=== PATIENT | female | born 1955 | race Caucasian/White ===

== ENCOUNTER → 2016-04-06 | Outpatient (REF) | payer OTHER | END | disposition home or self-care (01) | LOC: M LAB REF 16:17 | PROVIDERS: ATTEND Internal Medicine Medical Oncology | DX: C50.919 Malignant neoplasm of unspecified site of unspecified female breast (principal) ==

== ENCOUNTER → 2016-10-04 | Outpatient (REF) | payer OTHER | LOC: M LAB REF 16:36 | PROVIDERS: ATTEND Internal Medicine Medical Oncology | DX: C50.919 Malignant neoplasm of unspecified site of unspecified female breast (principal) ==

== ENCOUNTER → 2016-10-27 | Outpatient (CLI) | payer OTHER ==
--- NOTE | 2016-11-05 07:28 | SLEEPHOME ---
DATE OF PROCEDURE: 10/27/2016 ORDERED BY: Nanette Harp INTERPRETATION: Diagnostic home sleep testing was performed due to concern for the obstructive sleep apnea syndrome. Testing was performed using a NOX-T3 respiratory monitoring device. Continuous record was made of pulse, oxygen saturation, air flow, chest and abdominal strain and body position. 10 hours and 59 minutes of data were reviewed. There were 9 hours and 36 minutes of time marked as time in bed. During the interval marked time in bed, there were 218 respiratory events identified of 10 seconds in duration or greater for a respiratory event index of 22.7. The events were primarily obstructive. Baseline pulse rate 81. Patient's pulse rate ranged 41-98. Baseline saturation 91%. Lowest oxygen saturation 82%. Testing was performed in both the supine and non-supine position. IMPRESSION: Abnormal home sleep testing with repetitive respiratory events and oxygen desaturations to 82% with a respiratory event index of 22.7 is consistent with significant obstructive sleep apnea syndrome. RECOMMENDATION: The patient should be encouraged to undergo formal sleep evaluation and in laboratory pressure titration.
== END ==
LOC: M SLEEP HO 10:52
PROVIDERS: ATTEND Family Medicine
DX: G47.9 Sleep disorder, unspecified (principal); R06.83 Snoring

== ENCOUNTER → 2017-02-09 | Day surgery (SDC) | payer OTHER | LOC: M SDC 19:39 | PROVIDERS: ATTEND Internal Medicine Gastroenterology | DX: Z53.9 Procedure and treatment not carried out, unspecified reason (principal) ==

== ENCOUNTER → 2017-02-09 | Outpatient (CLI) | payer OTHER ==
--- NOTE | 2017-02-11 13:41 | SLEEPCENT ---
DATE OF PROCEDURE: 02/09/2017 ORDERED BY: Catie Rivas Nocturnal polysomnography was performed for the titration of pressure therapy in this patient with a clinical diagnosis of obstructive sleep apnea syndrome supported by home testing revealing a respiratory event index of 23. For testing, a ResMed AirFit F10 full face mask of small size was used, 4 cm of water pressure were applied to the circuit and the lights were extinguished. 8 hours and 10 minutes of data were reviewed. There were 266 minutes of sleep identified. Sleep latency was prolonged at 78 minutes. The patient was unable to achieve rapid eye movement (REM) sleep. Overall sleep architecture was poor with poor progression, a period of wake between 2:15 and 3:15, severe fragmentation. The overall sleep efficiency was 55.3%. Electrocardiogram showed a sinus rhythm with an average heart rate of 85 beats per minute. EEG showed coarsening in waveforms, alpha intrusion into non-REM stages. No focal EEG activity is appreciated and waveforms were otherwise normal for awake and sleep. Persistence of respiratory events prompted an increase in continuous positive airway pressure (CPAP) pressure despite optimal mask fit and minimal air leak. A trial was given of bilevel therapy. In retrospect, though the patient's sleep architecture was quite fragmented throughout the test, respiratory event suppression was seen in the supine posture with a CPAP pressure of 19. IMPRESSION: Obstructive sleep apnea syndrome (G47.33). RECOMMENDATION: Initiation of CPAP at a pressure of 19 cm should be sufficient to address the patient's respiratory disruption. However, given the poor progression of sleep on this testing, if clinical response is not forthcoming, re-titration would be prudent once the patient is accustomed to wearing the mask. Copy To: Dr. Mendiola
== END ==
LOC: M SLEEP 19:37
PROVIDERS: ATTEND Nurse Practitioner Adult Health
DX: G47.33 Obstructive sleep apnea (adult) (pediatric) (principal)

== ENCOUNTER 2017-03-24 08:50 | Day surgery (SDC) | payer OTHER ==
[2017-03-24] MEDS ORDERED: PROPOFOL 200 MG/20 ML VIAL As Ordered ×4 (08:57)
[2017-03-24] MEDS ORDERED: LIDOCAINE 2% INJ 100 MG/5 ML SDV (FOR ANES.) As Ordered ×2 (08:57)
[2017-03-24] MEDS ORDERED: PROPOFOL 500 MG/50 ML VIAL As Ordered ×2 (08:57)
[2017-03-24] MEDS ORDERED: NS 1,000 ML IV ×2 (09:15)
== END 2017-03-24 10:25 | disposition home or self-care (01) ==
LOC: M SDC 08:50
DX: Z12.11 Encounter for screening for malignant neoplasm of colon (principal); Z86.010 Personal history of colon polyps; K64.8 Other hemorrhoids; K57.30 Diverticulosis of large intestine without perforation or abscess without bleeding; Z80.0 Family history of malignant neoplasm of digestive organs; R12 Heartburn; K44.9 Diaphragmatic hernia without obstruction or gangrene; E78.00 Pure hypercholesterolemia, unspecified; E03.9 Hypothyroidism, unspecified; E06.3 Autoimmune thyroiditis; M32.9 Systemic lupus erythematosus, unspecified; F32.9 Major depressive disorder, single episode, unspecified; G47.30 Sleep apnea, unspecified; Z92.21 Personal history of antineoplastic chemotherapy; Z92.3 Personal history of irradiation; Z79.899 Other long term (current) drug therapy
CPT/HCPCS: 45378

== ENCOUNTER → 2017-04-11 | Outpatient (REF) | payer OTHER ==
[2017-04-11 14:55] LABS: CA15-3 ANTIGEN 10.2 U/ML (<32.4)
== END ==
LOC: M LAB REF 13:10
DX: C50.919 Malignant neoplasm of unspecified site of unspecified female breast (principal)
CPT/HCPCS: 86300

== ENCOUNTER → 2017-10-09 | Outpatient (REF) | payer OTHER ==
[2017-10-10 09:54] LABS: CA15-3 ANTIGEN 11.1 U/ML (<32.4)
== END ==
LOC: M LAB REF 13:14
DX: Z00.00 Encounter for general adult medical examination without abnormal findings (principal)

== ENCOUNTER → 2018-04-18 | Outpatient (CLI) | payer OTHER ==
[~2018-04-18] MED LIST: CELL500T PO; CEVI30CAP PO; DRIS50003 PO; GEMF600T5 PO; HYDR200T3 PO; LEVO125T4 PO; PANT40TA3 PO; PARO40TA3 PO; SIMV80TA13 PO; VAGI10TA VA; VENL37.52 PO
--- NOTE | 2018-04-18 15:27 | REP ---
WHOLE BODY BONE SCAN: Following the intravenous administration of 21.5 millicuries of Technetium M MDP, patient's whole body was imaged in the anterior and posterior projections. Additional oblique and lateral views were obtained. Comparison made with prior study if 10/04/2004. I see no compelling scintigraphic evidence of osseous metastases. There appears to be arthritic uptake once again in both shoulders, in portions of the entire spine and in the bilateral hands and feet. Renal and bladder activity are seen. The arthritic uptake in the spine has increased since the prior study. IMPRESSION: No compelling scintigraphic evidence of osseous metastases. Electronically Signed by Harris Harden MD 04/18/2018 05:24 P
== END ==
LOC: M RAD 09:50
PROVIDERS: ATTEND Internal Medicine Medical Oncology
DX: Z85.3 Personal history of malignant neoplasm of breast (principal); M54.5 Low back pain
CPT/HCPCS: 78306; A9503

== ENCOUNTER → 2018-07-10 | Outpatient (CLI) | payer OTHER ==
--- NOTE | 2018-07-11 03:08 | REP ---
Clinical: Cough. Technique: PA and lateral. Comparison: 11/24/2006. Findings: Elevation of the bilateral hemidiaphragms (left greater than right) along with perihilar and right lower lobe increased markings suggesting elements of atelectasis. No effusion. No pneumothorax. Visualized portions of the cardiac silhouette appear relatively normal. Skeletal structures appear intact. Evidence for prior left axillary node dissection. Impression: Relatively new elevation to the bilateral hemidiaphragms with suspected perihilar and right lower lobe atelectasis. Electronically Signed by Naveen Alonso MD 07/11/2018 02:58 A
== END ==
LOC: M SMT 09:07
PROVIDERS: ATTEND Family Medicine
DX: R91.8 Other nonspecific abnormal finding of lung field (principal)

== ENCOUNTER → 2018-10-10 | Outpatient (REF) | payer OTHER ==
[2018-10-13 14:07] LABS: HPV HYBRID CAPTURE II Negative (Negative)
== END ==
LOC: M SFHCWAGY 15:58
PROVIDERS: ATTEND Nurse Practitioner Family
DX: Z12.4 Encounter for screening for malignant neoplasm of cervix (principal)

== ENCOUNTER → 2020-08-25 | Outpatient (CLI) | payer OTHER ==
[~2020-08-25] MED LIST changes: +OSTE1TAB2 PO; +PANT40TA29 PO; -PANT40TA3 PO
[2020-08-25 16:30] LABS: BASO % 0.7 % (0.0-1.0); EOS # 0.1 10^3/uL (0.0-0.5); EOS % 1.8 % (0.0-3.0); HEMATOCRIT 38.3 % (36.0-47.0); HEMOGLOBIN 12.2 g/dl (12.0-15.5); MEAN CORPUSCULAR HEMOGLOBIN 31.3 pg (27.0-33.0); MEAN CORPUSCULAR HGB CONC 31.9 g/dl (32.0-36.5); MEAN CORPUSCULAR VOLUME 98.2 fl (80.0-96.0); MONO # 0.7 10^3/uL (0.0-0.8); MONO % 14.9 % (2.0-8.0); NEUTROPHILS # 2.6 10^3/uL (1.5-8.5); NEUTROPHILS % 60.1 % (36.0-66.0); PLATELET COUNT, AUTOMATED 206 10^3/uL (150-450); WHITE BLOOD COUNT 4.4 10^3/uL (4.0-10.0)
[2020-08-25 17:30] LABS: ALBUMIN 4.2 GM/DL (3.2-5.2); ALT/SGPT 28 U/L (12-78); BILIRUBIN,TOTAL 0.4 MG/DL (0.2-1.0); BLOOD UREA NITROGEN 13 MG/DL (7-18); CALCIUM LEVEL 9.7 MG/DL (8.8-10.2); CARBON DIOXIDE LEVEL 25 MEQ/L (21-32); CHLORIDE LEVEL 107 MEQ/L (98-107); CHOLESTEROL LEVEL 211 MG/DL (<200); CHOLESTEROL RISK RATIO 4.306 (<5); CREATININE FOR GFR 0.63 MG/DL (0.55-1.30); GLOMERULAR FILTRATION RATE > 60.0 (>45); GLUCOSE, FASTING 82 MG/DL (70-100); HDL CHOLESTEROL 49 MG/DL (>40); LDL CHOLESTEROL 120 MG/DL (<100); NON-HDL-C 162 MG/DL; POTASSIUM SERUM 4.4 MEQ/L (3.5-5.1); SODIUM LEVEL 139 MEQ/L (136-145); THYROID STIMULATING HORMONE 0.206 uIU/ML (0.358-3.740); TOTAL PROTEIN 7.8 GM/DL (6.4-8.2); TRIGLYCERIDES LEVEL 209 MG/DL (<150)
[2020-08-25 17:31] LABS: FREE T4 1.39 NG/DL (0.76-1.46); TOTAL 25(OH) VITAMIN D 60.2 NG/ML (30.0-100.0)
== END ==
LOC: M WUC 12:33
PROVIDERS: ATTEND Family Medicine
DX: E89.0 Postprocedural hypothyroidism (principal); E55.9 Vitamin D deficiency, unspecified; E78.2 Mixed hyperlipidemia

== ENCOUNTER → 2020-10-14 | Outpatient (REF) | payer OTHER | LOC: M SFHCWAGY 13:16 | PROVIDERS: ATTEND Nurse Practitioner Women's Health | DX: Z12.4 Encounter for screening for malignant neoplasm of cervix (principal); N88.8 Other specified noninflammatory disorders of cervix uteri ==

== ENCOUNTER → 2021-02-24 | Outpatient (CLI) | payer OTHER ==
[2021-02-24 16:36] LABS: BASO # 0.1 10^3/uL (0.0-0.2); BASO % 1.1 % (0.0-1.0); EOS # 0.1 10^3/uL (0.0-0.5); EOS % 2.4 % (0.0-3.0); HEMATOCRIT 40.6 % (36.0-47.0); HEMOGLOBIN 12.7 g/dl (12.0-15.5); LYMPH # 1.2 10^3/uL (1.5-5.0); LYMPH % 25.3 % (24.0-44.0); MEAN CORPUSCULAR HEMOGLOBIN 31.6 pg (27.0-33.0); MEAN CORPUSCULAR HGB CONC 31.3 g/dl (32.0-36.5); MONO # 0.7 10^3/uL (0.0-0.8); MONO % 15.9 % (2.0-8.0); NEUTROPHILS # 2.5 10^3/uL (1.5-8.5); NEUTROPHILS % 54.2 % (36.0-66.0); PLATELET COUNT, AUTOMATED 217 10^3/uL (150-450); RED BLOOD COUNT 4.02 10^6/uL (4.00-5.40); WHITE BLOOD COUNT 4.7 10^3/uL (4.0-10.0)
[2021-02-24 17:05] LABS: ALBUMIN 4.2 GM/DL (3.2-5.2); ALT/SGPT 37 U/L (12-78); BILIRUBIN,TOTAL 0.7 MG/DL (0.2-1.0); BLOOD UREA NITROGEN 16 MG/DL (7-18); CALCIUM LEVEL 9.8 MG/DL (8.8-10.2); CARBON DIOXIDE LEVEL 29 MEQ/L (21-32); CHLORIDE LEVEL 103 MEQ/L (98-107); CHOLESTEROL LEVEL 244 MG/DL (<200); CHOLESTEROL RISK RATIO 3.873 (<5); CREATININE FOR GFR 0.71 MG/DL (0.55-1.30); FREE T4 1.02 NG/DL (0.76-1.46); GLOMERULAR FILTRATION RATE > 60.0 (>45); GLUCOSE, FASTING 91 MG/DL (70-100); HDL CHOLESTEROL 63 MG/DL (>40); LDL CHOLESTEROL 143 MG/DL (<100); NON-HDL-C 181 MG/DL; POTASSIUM SERUM 4.3 MEQ/L (3.5-5.1); SODIUM LEVEL 139 MEQ/L (136-145); TOTAL PROTEIN 8.1 GM/DL (6.4-8.2); TRIGLYCERIDES LEVEL 189 MG/DL (<150)
== END ==
LOC: M WUC 13:17
PROVIDERS: ATTEND Family Medicine
DX: Z00.00 Encounter for general adult medical examination without abnormal findings (principal)

== ENCOUNTER → 2021-05-24 | Outpatient (CLI) | payer OTHER ==
[2021-05-24 16:32] LABS: CHOLESTEROL RISK RATIO 4.05 (<5); FREE T4 1.25 NG/DL (0.76-1.46); THYROID STIMULATING HORMONE 0.774 uIU/ML (0.358-3.740)
== END ==
LOC: M WUC 12:29
PROVIDERS: ATTEND Family Medicine
DX: E89.0 Postprocedural hypothyroidism (principal); E78.2 Mixed hyperlipidemia

== ENCOUNTER → 2021-06-02 | Outpatient (CLI) | payer OTHER | LOC: M WUC 11:48 | PROVIDERS: ATTEND Family Medicine | DX: R05.2 Subacute cough (principal) ==

== ENCOUNTER → 2021-10-14 | Outpatient (REF) | payer OTHER ==
[~2021-10-14] MED LIST changes: +LOPI600T PO; +SIMVASTATIN PO
== END ==
LOC: M SFHCWAGY 10:17
PROVIDERS: ATTEND Specialist
DX: Z12.4 Encounter for screening for malignant neoplasm of cervix (principal); Z01.419 Encounter for gynecological examination (general) (routine) without abnormal findings; Z77.9 Other contact with and (suspected) exposures hazardous to health

== ENCOUNTER → 2021-11-17 | Outpatient (CLI) | payer MEDICARE, OTHER ==
[~2021-11-17] MED LIST changes: +CEVI30CA6 PO; -CEVI30CAP PO
[2021-11-17 17:25] LABS: BASO % 0.8 % (0.0-1.0); EOS # 0.1 10^3/uL (0.0-0.5); EOS % 1.7 % (0.0-3.0); HEMATOCRIT 40.1 % (36.0-47.0); HEMOGLOBIN 12.8 g/dl (12.0-15.5); LYMPH # 1.1 10^3/uL (1.5-5.0); LYMPH % 22.5 % (24.0-44.0); MEAN CORPUSCULAR HEMOGLOBIN 32.2 pg (27.0-33.0); MEAN CORPUSCULAR HGB CONC 31.9 g/dl (32.0-36.5); MEAN CORPUSCULAR VOLUME 100.8 fl (80.0-96.0); MONO # 0.7 10^3/uL (0.0-0.8); MONO % 14.1 % (2.0-8.0); NEUTROPHILS # 2.9 10^3/uL (1.5-8.5); NEUTROPHILS % 60.1 % (36.0-66.0); PLATELET COUNT, AUTOMATED 207 10^3/uL (150-450); RED BLOOD COUNT 3.98 10^6/uL (4.00-5.40); WHITE BLOOD COUNT 4.8 10^3/uL (4.0-10.0)
[2021-11-17 18:06] LABS: ALBUMIN 4.1 GM/DL (3.2-5.2); ALT/SGPT 35 U/L (12-78); BILIRUBIN,TOTAL 0.4 MG/DL (0.2-1.0); BLOOD UREA NITROGEN 13 MG/DL (7-18); CALCIUM LEVEL 9.7 MG/DL (8.8-10.2); CARBON DIOXIDE LEVEL 28 MEQ/L (21-32); CHLORIDE LEVEL 103 MEQ/L (98-107); CHOLESTEROL LEVEL 258 MG/DL (<200); CHOLESTEROL RISK RATIO 5.375 (<5); FREE T4 0.83 NG/DL (0.76-1.46); GLOMERULAR FILTRATION RATE > 60.0 (>45); GLUCOSE, FASTING 89 MG/DL (70-100); HDL CHOLESTEROL 48 MG/DL (>40); LDL CHOLESTEROL 143 MG/DL (<100); NON-HDL-C 210 MG/DL; POTASSIUM SERUM 4.2 MEQ/L (3.5-5.1); SODIUM LEVEL 136 MEQ/L (136-145); TOTAL PROTEIN 7.8 GM/DL (6.4-8.2); TRIGLYCERIDES LEVEL 337 MG/DL (<150)
== END ==
LOC: M WUC 11:59
PROVIDERS: ATTEND Family Medicine
DX: E89.0 Postprocedural hypothyroidism (principal); E78.2 Mixed hyperlipidemia

== ENCOUNTER → 2022-02-21 | Outpatient (CLI) | payer MEDICARE, OTHER ==
[2022-02-21 16:59] LABS: BASO % 0.4 % (0.0-1.0); EOS # 0.1 10^3/uL (0.0-0.5); EOS % 2.2 % (0.0-3.0); HEMATOCRIT 40.7 % (36.0-47.0); HEMOGLOBIN 12.8 g/dl (12.0-15.5); LYMPH # 1.1 10^3/uL (1.5-5.0); LYMPH % 21.8 % (24.0-44.0); MEAN CORPUSCULAR HEMOGLOBIN 31.8 pg (27.0-33.0); MEAN CORPUSCULAR HGB CONC 31.4 g/dl (32.0-36.5); MEAN CORPUSCULAR VOLUME 101.2 fl (80.0-96.0); MONO # 0.7 10^3/uL (0.0-0.8); MONO % 14.4 % (2.0-8.0); NEUTROPHILS % 60.6 % (36.0-66.0); PLATELET COUNT, AUTOMATED 224 10^3/uL (150-450); RED BLOOD COUNT 4.02 10^6/uL (4.00-5.40)
[2022-02-21 17:15] LABS: ALBUMIN 4.2 G/DL (3.2-5.2); ALKALINE PHOSPHATASE 94 U/L (46-116); ALT/SGPT 27 U/L (7.0-40); AST/SGOT 27 U/L (<34); BILIRUBIN,TOTAL 0.5 MG/DL (0.3-1.2); BLOOD UREA NITROGEN 18 MG/DL (9-23); CALCIUM LEVEL 9.6 MG/DL (8.3-10.6); CARBON DIOXIDE LEVEL 25 MMOL/L (20-31); CHLORIDE LEVEL 105 MMOL/L (98-107); CHOLESTEROL LEVEL 177 MG/DL (<200); CREATININE FOR GFR 0.62 MG/DL (0.55-1.30); GLOMERULAR FILTRATION RATE > 60.0 (>45); GLUCOSE, FASTING 98 MG/DL (74-106); HDL CHOLESTEROL 55.2 MG/DL (>40); LDL CHOLESTEROL 92.6 MG/DL (<100); NON-HDL-C 122 MG/DL; POTASSIUM SERUM 4.2 MMOL/L (3.5-5.1); SODIUM LEVEL 140 MMOL/L (136-145); TOTAL PROTEIN 7.7 G/DL (5.7-8.2); TRIGLYCERIDES LEVEL 146 MG/DL (<150)
[2022-02-21 17:16] LABS: THYROID STIMULATING HORMONE 0.169 uIU/ML (0.55-4.78)
== END ==
LOC: M WUC 11:47
PROVIDERS: ATTEND Nurse Practitioner Adult Health
DX: E78.2 Mixed hyperlipidemia (principal); E89.0 Postprocedural hypothyroidism

== ENCOUNTER → 2022-04-04 | Outpatient (CLI) | payer MEDICARE, OTHER ==
[2022-04-04 14:02] LABS: FREE T4 1.28 NG/DL (0.89-1.76); THYROID STIMULATING HORMONE 3.186 uIU/ML (0.55-4.78)
== END ==
LOC: M PLALAB 11:01
PROVIDERS: ATTEND Nurse Practitioner Adult Health
DX: E89.0 Postprocedural hypothyroidism (principal)

== ENCOUNTER → 2022-05-17 | Outpatient (CLI) | payer MEDICARE, OTHER ==
[2022-05-17 17:40] LABS: ALBUMIN 4.1 G/DL (3.2-5.2); ALKALINE PHOSPHATASE 101 U/L (46-116); ALT/SGPT 30 U/L (7.0-40); AST/SGOT 30 U/L (<34); BASO % 0.6 % (0.0-1.0); BILIRUBIN,TOTAL 0.5 MG/DL (0.3-1.2); BLOOD UREA NITROGEN 18 MG/DL (9-23); CALCIUM LEVEL 9.7 MG/DL (8.3-10.6); CARBON DIOXIDE LEVEL 27 MMOL/L (20-31); CHLORIDE LEVEL 105 MMOL/L (98-107); CHOLESTEROL LEVEL 194 MG/DL (<200); CHOLESTEROL RISK RATIO 3.06 (<5); CREATININE FOR GFR 0.62 MG/DL (0.55-1.30); EOS # 0.1 10^3/uL (0.0-0.5); EOS % 1.4 % (0.0-3.0); GLOMERULAR FILTRATION RATE > 60.0 (>45); GLUCOSE, FASTING 92 MG/DL (74-106); HDL CHOLESTEROL 63.3 MG/DL (>40); HEMATOCRIT 41.1 % (36.0-47.0); HEMOGLOBIN 12.9 g/dl (12.0-15.5); LDL CHOLESTEROL 100.3 MG/DL (<100); LYMPH # 1.2 10^3/uL (1.5-5.0); LYMPH % 23.9 % (24.0-44.0); MEAN CORPUSCULAR HEMOGLOBIN 31.8 pg (27.0-33.0); MEAN CORPUSCULAR HGB CONC 31.4 g/dl (32.0-36.5); MEAN CORPUSCULAR VOLUME 101.2 fl (80.0-96.0); MONO # 0.7 10^3/uL (0.0-0.8); MONO % 14.9 % (2.0-8.0); NEUTROPHILS # 2.9 10^3/uL (1.5-8.5); NEUTROPHILS % 58.8 % (36.0-66.0); NON-HDL-C 131 MG/DL; PLATELET COUNT, AUTOMATED 207 10^3/uL (150-450); POTASSIUM SERUM 4.8 MMOL/L (3.5-5.1); RED BLOOD COUNT 4.06 10^6/uL (4.00-5.40); SODIUM LEVEL 141 MMOL/L (136-145); TOTAL PROTEIN 7.8 G/DL (5.7-8.2); TRIGLYCERIDES LEVEL 152 MG/DL (<150); WHITE BLOOD COUNT 4.9 10^3/uL (4.0-10.0)
[2022-05-17 17:41] LABS: FREE T4 1.13 NG/DL (0.89-1.76)
== END ==
LOC: M WUC 13:28
PROVIDERS: ATTEND Nurse Practitioner Adult Health
DX: E78.2 Mixed hyperlipidemia (principal); E89.0 Postprocedural hypothyroidism

== ENCOUNTER 2022-10-19 07:51 | Day surgery (SDC) | payer MEDICARE, OTHER ==
[~2022-10-19] VITALS: Ht 167.6 cm; Wt 80.6 kg
[~2022-10-19 07:51] MED LIST changes: +CALC250T PO; +EQL50TAB2 PO; -HYDR200T3 PO; +HYDR200T46 PO; +NS 1,000 ML IV ONE; +SIMV-254 PO; +SYNT125T PO; +VITA100065 PO; +VITA100093 PO
[2022-10-19 09:38] VITALS: TEMP 97.4
[2022-10-19] MEDS ORDERED: ALBUTEROL SULFATE 2.5MG/0.5ML INH NEB SOLN NEB ONE (09:45)
[2022-10-19 10:25] VITALS: BP 135/87; O2SAT 93
== END 2022-10-19 10:32 | disposition home or self-care (01) ==
LOC: M OPP 07:51
PROVIDERS: ATTEND Internal Medicine Gastroenterology
DX: K44.9 Diaphragmatic hernia without obstruction or gangrene (principal); R12 Heartburn; Z80.0 Family history of malignant neoplasm of digestive organs; Z79.1 Long term (current) use of non-steroidal anti-inflammatories (NSAID); Z79.620 Long term (current) use of immunosuppressive biologic; Z79.890 Hormone replacement therapy; Z79.899 Other long term (current) drug therapy

== ENCOUNTER → 2022-11-15 | Outpatient (CLI) | payer MEDICARE, OTHER ==
[~2022-11-15] MED LIST changes: -NS 1,000 ML IV ONE
[2022-11-15 17:53] LABS: BASO % 0.7 % (0.0-1.0); EOS # 0.1 10^3/uL (0.0-0.5); EOS % 1.2 % (0.0-3.0); HEMATOCRIT 41.6 % (36.0-47.0); LYMPH # 1.2 10^3/uL (1.5-5.0); LYMPH % 21.5 % (24.0-44.0); MEAN CORPUSCULAR HEMOGLOBIN 31.4 pg (27.0-33.0); MEAN CORPUSCULAR HGB CONC 31.3 g/dl (32.0-36.5); MEAN CORPUSCULAR VOLUME 100.5 fl (80.0-96.0); MONO # 0.7 10^3/uL (0.0-0.8); MONO % 11.7 % (2.0-8.0); NEUTROPHILS # 3.7 10^3/uL (1.5-8.5); NEUTROPHILS % 64.4 % (36.0-66.0); PLATELET COUNT, AUTOMATED 241 10^3/uL (150-450); RED BLOOD COUNT 4.14 10^6/uL (4.00-5.40); WHITE BLOOD COUNT 5.7 10^3/uL (4.0-10.0)
[2022-11-15 18:21] LABS: ALBUMIN 4.6 G/DL (3.2-5.2); ALKALINE PHOSPHATASE 101 U/L (46-116); ALT/SGPT 27 U/L (7.0-40); AST/SGOT 27 U/L (<34); BILIRUBIN,TOTAL 0.5 MG/DL (0.3-1.2); BLOOD UREA NITROGEN 16 MG/DL (9-23); CALCIUM LEVEL 9.9 MG/DL (8.3-10.6); CARBON DIOXIDE LEVEL 25 MMOL/L (20-31); CHLORIDE LEVEL 105 MMOL/L (98-107); CHOLESTEROL LEVEL 217 MG/DL (<200); CHOLESTEROL RISK RATIO 3.84 (<5); FREE T4 1.29 NG/DL (0.89-1.76); GLOMERULAR FILTRATION RATE > 60.0 (>45); GLUCOSE, FASTING 92 MG/DL (74-106); HDL CHOLESTEROL 56.4 MG/DL (>40); LDL CHOLESTEROL 124.8 MG/DL (<100); NON-HDL-C 160.6 MG/DL; POTASSIUM SERUM 4.1 MMOL/L (3.5-5.1); SODIUM LEVEL 141 MMOL/L (136-145); THYROID STIMULATING HORMONE 1.411 uIU/ML (0.55-4.78); TOTAL PROTEIN 8.3 G/DL (5.7-8.2); TRIGLYCERIDES LEVEL 179 MG/DL (<150)
== END ==
LOC: M WUC 13:52
PROVIDERS: ATTEND Nurse Practitioner Adult Health
DX: E89.0 Postprocedural hypothyroidism (principal); E78.2 Mixed hyperlipidemia; G47.33 Obstructive sleep apnea (adult) (pediatric)

== ENCOUNTER → 2023-05-23 | Outpatient (CLI) | payer MEDICARE, OTHER ==
[2023-05-23 16:29] LABS: BASO # 0.1 10^3/uL (0.0-0.2); EOS # 0.1 10^3/uL (0.0-0.5); EOS % 2.5 % (0.0-3.0); HEMATOCRIT 39.7 % (36.0-47.0); HEMOGLOBIN 12.7 g/dl (12.0-15.5); LYMPH # 1.2 10^3/uL (1.5-5.0); LYMPH % 22.8 % (24.0-44.0); MEAN CORPUSCULAR HEMOGLOBIN 31.9 pg (27.0-33.0); MEAN CORPUSCULAR VOLUME 99.7 fl (80.0-96.0); MONO # 0.6 10^3/uL (0.0-0.8); MONO % 11.6 % (2.0-8.0); NEUTROPHILS # 3.2 10^3/uL (1.5-8.5); NEUTROPHILS % 61.3 % (36.0-66.0); PLATELET COUNT, AUTOMATED 256 10^3/uL (150-450); RED BLOOD COUNT 3.98 10^6/uL (4.00-5.40); WHITE BLOOD COUNT 5.3 10^3/uL (4.0-10.0)
[2023-05-23 16:43] LABS: ERYTHROCYTE SEDIMENTATION RATE 82 mm/hr (0-30)
[2023-05-23 16:56] LABS: C REACTIVE PROTEIN QUANTITATIV < 0.40 MG/DL (<1.0)
[2023-05-23 16:58] LABS: ALT/SGPT 24 U/L (7.0-40); AST/SGOT 22 U/L (<34); BLOOD UREA NITROGEN 14 MG/DL (9-23); GLOMERULAR FILTRATION RATE > 60.0 (>45)
[2023-05-23 16:59] LABS: COMPLEMENT C3 193.7 MG/DL (90.0-170.0); COMPLEMENT C4 22.7 MG/DL (12-36)
== END ==
LOC: M WUC 13:28
PROVIDERS: ATTEND Registered Nurse
DX: M32.19 Other organ or system involvement in systemic lupus erythematosus (principal); M35.01 Sjogren syndrome with keratoconjunctivitis; Z79.899 Other long term (current) drug therapy

== ENCOUNTER 2023-07-19 06:39 | Day surgery (SDC) | payer MEDICARE, OTHER ==
[~2023-07-19] VITALS: Ht 167.6 cm; Wt 82.4 kg
[~2023-07-19 06:39] MED LIST changes: +MAGN250T7 PO; +MULT-90 PO; +ZINC100T3 PO
[2023-07-19] MEDS ORDERED: propofoL 200 MG/20 ML VIAL As Ordered ONE (06:50)
[2023-07-19] MEDS ORDERED: propofoL 500 MG/50 ML VIAL As Ordered ONE (06:50)
[2023-07-19] MEDS: NS 1,000 ML IV ONE (07:10)
[2023-07-19 08:00] VITALS: TEMP 97.9
[2023-07-19 08:15] VITALS: BP 147/88; O2SAT 96
[2023-07-19 08:53] LABS: BASO % 0.7 % (0.0-1.0); EOS # 0.1 10^3/uL (0.0-0.5); EOS % 2.2 % (0.0-3.0); HEMATOCRIT 37.1 % (36.0-47.0); HEMOGLOBIN 12.3 g/dl (12.0-15.5); LYMPH # 1.1 10^3/uL (1.5-5.0); LYMPH % 23.2 % (24.0-44.0); MEAN CORPUSCULAR HEMOGLOBIN 32.5 pg (27.0-33.0); MEAN CORPUSCULAR HGB CONC 33.2 g/dl (32.0-36.5); MEAN CORPUSCULAR VOLUME 98.1 fl (80.0-96.0); MONO # 0.5 10^3/uL (0.0-0.8); MONO % 11.7 % (2.0-8.0); NEUTROPHILS # 2.8 10^3/uL (1.5-8.5); NEUTROPHILS % 61.5 % (36.0-66.0); PLATELET COUNT, AUTOMATED 207 10^3/uL (150-450); RED BLOOD COUNT 3.78 10^6/uL (4.00-5.40); WHITE BLOOD COUNT 4.6 10^3/uL (4.0-10.0)
[2023-07-19 09:10] LABS: ALBUMIN 3.7 G/DL (3.2-5.2); ALKALINE PHOSPHATASE 93 U/L (46-116); ALT/SGPT 27 U/L (7.0-40); AST/SGOT 28 U/L (<34); BILIRUBIN,TOTAL 0.5 MG/DL (0.3-1.2); BLOOD UREA NITROGEN 14 MG/DL (9-23); CALCIUM LEVEL 9.1 MG/DL (8.3-10.6); CARBON DIOXIDE LEVEL 21 MMOL/L (20-31); CHLORIDE LEVEL 111 MMOL/L (98-107); CHOLESTEROL LEVEL 177 MG/DL (<200); CHOLESTEROL RISK RATIO 3.69 (<5); CREATININE FOR GFR 0.59 MG/DL (0.55-1.30); GLOMERULAR FILTRATION RATE > 60.0 (>45); GLUCOSE, FASTING 105 MG/DL (74-106); HDL CHOLESTEROL 47.9 MG/DL (>40); LDL CHOLESTEROL 79.5 MG/DL (<100); NON-HDL-C 129.1 MG/DL; POTASSIUM SERUM 3.9 MMOL/L (3.5-5.1); SODIUM LEVEL 143 MMOL/L (136-145); TOTAL PROTEIN 7.5 G/DL (5.7-8.2); TRIGLYCERIDES LEVEL 248 MG/DL (<150)
[2023-07-19 09:24] LABS: FREE T4 1.27 NG/DL (0.89-1.76); THYROID STIMULATING HORMONE 8.295 uIU/ML (0.55-4.78)
== END 2023-07-19 08:26 | disposition home or self-care (01) ==
LOC: M OPP 06:39
PROVIDERS: ATTEND Internal Medicine Gastroenterology
DX: Z12.11 Encounter for screening for malignant neoplasm of colon (principal); K64.0 First degree hemorrhoids; Z86.010 Personal history of colon polyps; Z87.19 Personal history of other diseases of the digestive system; Z80.0 Family history of malignant neoplasm of digestive organs; E89.0 Postprocedural hypothyroidism; E78.00 Pure hypercholesterolemia, unspecified; M32.9 Systemic lupus erythematosus, unspecified; Z79.890 Hormone replacement therapy; Z79.899 Other long term (current) drug therapy
CPT/HCPCS: 36415; 80053; 80061; 82306; 84439; 84443; 85025; G0105

== ENCOUNTER → 2023-09-11 | Outpatient (REF) | payer MEDICARE, OTHER ==
[~2023-09-11] MED LIST changes: +CEVI1CAP PO; +SYNT137T7 PO
[2023-09-11 20:02] LABS: THYROID STIMULATING HORMONE 0.392 uIU/ML (0.55-4.78)
[2023-09-11 20:04] LABS: FREE T4 1.31 NG/DL (0.89-1.76)
== END ==
LOC: M LABWUC 16:09
PROVIDERS: ATTEND Nurse Practitioner Adult Health
DX: E89.0 Postprocedural hypothyroidism (principal)

== ENCOUNTER → 2023-11-21 | Outpatient (CLI) | payer MEDICARE, OTHER ==
[2023-11-21 17:31] LABS: BASO % 0.8 % (0.0-1.0); EOS # 0.1 10^3/uL (0.0-0.5); EOS % 2.2 % (0.0-3.0); HEMATOCRIT 41.6 % (36.0-47.0); HEMOGLOBIN 13.4 g/dl (12.0-15.5); LYMPH # 1.3 10^3/uL (1.5-5.0); MEAN CORPUSCULAR HEMOGLOBIN 32.3 pg (27.0-33.0); MEAN CORPUSCULAR HGB CONC 32.2 g/dl (32.0-36.5); MEAN CORPUSCULAR VOLUME 100.2 fl (80.0-96.0); MONO # 0.7 10^3/uL (0.0-0.8); MONO % 13.2 % (2.0-8.0); NEUTROPHILS # 2.9 10^3/uL (1.5-8.5); NEUTROPHILS % 57.2 % (36.0-66.0); PLATELET COUNT, AUTOMATED 246 10^3/uL (150-450); RED BLOOD COUNT 4.15 10^6/uL (4.00-5.40); WHITE BLOOD COUNT 5.1 10^3/uL (4.0-10.0)
[2023-11-21 17:51] LABS: ALBUMIN 4.4 G/DL (3.2-5.2); ALKALINE PHOSPHATASE 82 U/L (46-116); ALT/SGPT 26 U/L (7.0-40); AST/SGOT 29 U/L (<34); BILIRUBIN,TOTAL 0.5 MG/DL (0.3-1.2); BLOOD UREA NITROGEN 13 MG/DL (9-23); CALCIUM LEVEL 10.3 MG/DL (8.3-10.6); CARBON DIOXIDE LEVEL 26 MMOL/L (20-31); CHLORIDE LEVEL 109 MMOL/L (98-107); CHOLESTEROL LEVEL 199 MG/DL (<200); CHOLESTEROL RISK RATIO 3.26 (<5); CREATININE FOR GFR 0.65 MG/DL (0.55-1.30); GLOMERULAR FILTRATION RATE > 60.0 (>45); GLUCOSE, FASTING 91 MG/DL (74-106); HDL CHOLESTEROL 60.9 MG/DL (>40); LDL CHOLESTEROL 104.7 MG/DL (<100); NON-HDL-C 138.1 MG/DL; POTASSIUM SERUM 4.6 MMOL/L (3.5-5.1); SODIUM LEVEL 142 MMOL/L (136-145); TOTAL PROTEIN 8.1 G/DL (5.7-8.2); TRIGLYCERIDES LEVEL 167 MG/DL (<150)
[2023-11-21 17:54] LABS: FREE T4 1.56 NG/DL (0.89-1.76); THYROID STIMULATING HORMONE 0.469 uIU/ML (0.55-4.78)
[2023-11-21 17:55] LABS: TOTAL 25(OH) VITAMIN D 45.2 NG/ML (20.0-100.0)
== END ==
LOC: M WUC 11:25
PROVIDERS: ATTEND Nurse Practitioner Adult Health
DX: E89.0 Postprocedural hypothyroidism (principal); E78.2 Mixed hyperlipidemia; M32.9 Systemic lupus erythematosus, unspecified; E55.9 Vitamin D deficiency, unspecified

== ENCOUNTER → 2024-01-31 | Outpatient (CLI) | payer MEDICARE, OTHER | LOC: M WHC 13:07 | PROVIDERS: ATTEND Advanced Practice Midwife | DX: M81.0 Age-related osteoporosis without current pathological fracture (principal); Z13.820 Encounter for screening for osteoporosis ==

== ENCOUNTER → 2024-03-22 | Outpatient (CLI) | payer MEDICARE, OTHER ==
[2024-03-22 18:38] LABS: THYROID STIMULATING HORMONE 20.834 uIU/ML (0.55-4.78)
[2024-03-22 18:41] LABS: FREE T4 1.12 NG/DL (0.89-1.76)
== END ==
LOC: M WUC 10:53
PROVIDERS: ATTEND Nurse Practitioner Adult Health
DX: E89.0 Postprocedural hypothyroidism (principal)

== ENCOUNTER → 2024-05-14 | Outpatient (CLI) | payer MEDICARE, OTHER ==
[2024-05-14 15:29] LABS: THYROID STIMULATING HORMONE 1.934 uIU/ML (0.55-4.78)
[2024-05-14 15:30] LABS: FREE T4 1.34 NG/DL (0.89-1.76)
== END ==
LOC: M WUC 10:42
PROVIDERS: ATTEND Nurse Practitioner Adult Health
DX: E89.0 Postprocedural hypothyroidism (principal)

== ENCOUNTER → 2024-05-27 | Outpatient (CLI) | payer MEDICARE, OTHER ==
[2024-05-27 13:13] LABS: BLOOD UREA NITROGEN 15 MG/DL (9-23); CALCIUM LEVEL 10.5 MG/DL (8.3-10.6); CARBON DIOXIDE LEVEL 26 MMOL/L (20-31); CHLORIDE LEVEL 103 MMOL/L (98-107); CREATININE FOR GFR 0.61 MG/DL (0.55-1.30); GLOMERULAR FILTRATION RATE > 60.0 (>45); GLUCOSE, FASTING 92 MG/DL (74-106); POTASSIUM SERUM 4.6 MMOL/L (3.5-5.1); SODIUM LEVEL 139 MMOL/L (136-145)
== END ==
LOC: M PLAIMG 11:37
PROVIDERS: ATTEND Nurse Practitioner Adult Health
DX: R06.02 Shortness of breath (principal)

== ENCOUNTER → 2024-06-04 | Outpatient (CLI) | payer MEDICARE, OTHER ==
[2024-06-04 18:24] LABS: BLOOD UREA NITROGEN 14 MG/DL (9-23); CARBON DIOXIDE LEVEL 27 MMOL/L (20-31); CHLORIDE LEVEL 106 MMOL/L (98-107); CREATININE FOR GFR 0.63 MG/DL (0.55-1.30); GLOMERULAR FILTRATION RATE > 60.0 (>45); GLUCOSE, FASTING 139 MG/DL (74-106); POTASSIUM SERUM 4.2 MMOL/L (3.5-5.1); SODIUM LEVEL 143 MMOL/L (136-145)
== END ==
LOC: M WUC 14:46
PROVIDERS: ATTEND Nurse Practitioner Adult Health
DX: I50.9 Heart failure, unspecified (principal)

== ENCOUNTER → 2024-07-05 | Outpatient (CLI) | payer MEDICARE, OTHER ==
[2024-07-05 18:23] LABS: BLOOD UREA NITROGEN 19 MG/DL (9-23); CALCIUM LEVEL 10.1 MG/DL (8.3-10.6); CARBON DIOXIDE LEVEL 27 MMOL/L (20-31); CHLORIDE LEVEL 104 MMOL/L (98-107); CREATININE FOR GFR 0.69 MG/DL (0.55-1.30); GLOMERULAR FILTRATION RATE > 90.0 (>45); GLUCOSE, FASTING 106 MG/DL (74-106); POTASSIUM SERUM 4.1 MMOL/L (3.5-5.1); SODIUM LEVEL 143 MMOL/L (136-145)
== END ==
LOC: M WUC 14:50
PROVIDERS: ATTEND Nurse Practitioner Adult Health
DX: I11.0 Hypertensive heart disease with heart failure (principal); I50.32 Chronic diastolic (congestive) heart failure

== ENCOUNTER → 2024-08-30 | Outpatient (CLI) | payer MEDICARE, OTHER ==
[~2024-08-30] MED LIST changes: -EQL50TAB2 PO; +LASI20TA3 PO; +LOSA50TA28 PO; +POTA10CA70 PO; +VITA1TAB82 PO
== END ==
LOC: M EKG 11:02
PROVIDERS: ATTEND Internal Medicine Cardiovascular Disease
DX: I49.40 Unspecified premature depolarization (principal)

== ENCOUNTER → 2024-09-25 | Outpatient (CLI) | payer MEDICARE, OTHER ==
[2024-09-25 14:44] LABS: CALCIUM LEVEL 9.7 MG/DL (8.3-10.6); CARBON DIOXIDE LEVEL 25 MMOL/L (20-31); CHLORIDE LEVEL 106 MMOL/L (98-107); CREATININE FOR GFR 0.66 MG/DL (0.55-1.30); GLOMERULAR FILTRATION RATE > 90.0 (>45); PHOSPHORUS LEVEL 3.7 MG/DL (2.4-5.1); POTASSIUM SERUM 4.5 MMOL/L (3.5-5.1); SODIUM LEVEL 145 MMOL/L (136-145)
[2024-09-25 14:47] LABS: BASO # 0.0 10^3/uL (0.0-0.2); BASO % 0.7 % (0.0-1.0); EOS # 0.1 10^3/uL (0.0-0.5); EOS % 2.4 % (0.0-3.0); LYMPH # 1.5 10^3/uL (1.5-5.0); LYMPH % 33.9 % (24.0-44.0); MONO # 0.6 10^3/uL (0.0-0.8); MONO % 13.6 % (2.0-8.0); NEUTROPHILS # 2.2 10^3/uL (1.5-8.5); NEUTROPHILS % 48.7 % (36.0-66.0); PLATELET COUNT, AUTOMATED 248 10^3/uL (150-450)
== END ==
LOC: M WUC 11:56
PROVIDERS: ATTEND Internal Medicine Cardiovascular Disease
DX: I25.119 Atherosclerotic heart disease of native coronary artery with unspecified angina pectoris (principal); I10 Essential (primary) hypertension

== ENCOUNTER 2024-10-08 10:49 | Emergency (ER) | payer MEDICARE, OTHER ==
[~2024-10-08] VITALS: Ht 157.5 cm; Wt 83.6 kg
[2024-10-08] MEDS ORDERED: ISOVUE-370 76% 100 ML VIAL As Ordered ONE (11:18)
[2024-10-08 11:30] LABS: BASO # 0.0 10^3/uL (0.0-0.2); BASO % 0.5 % (0.0-1.0); EOS # 0.3 10^3/uL (0.0-0.5); EOS % 3.3 % (0.0-3.0); LYMPH # 0.7 10^3/uL (1.5-5.0); LYMPH % 8.9 % (24.0-44.0); MONO # 0.7 10^3/uL (0.0-0.8); MONO % 8.9 % (2.0-8.0); NEUTROPHILS # 6.0 10^3/uL (1.5-8.5); NEUTROPHILS % 72.5 % (36.0-66.0); PLATELET COUNT, AUTOMATED 293 10^3/uL (150-450)
[2024-10-08 11:42] VITALS: BP 116/57; TEMP 97.6; O2SAT 95
[2024-10-08 11:42] LABS: INR 1.01
[2024-10-08] MEDS ORDERED: FERR325T19 (11:56)
[2024-10-08] MEDS ORDERED: ACET1TAB55 (11:56)
[2024-10-08] MEDS ORDERED: ATOR80TA59 (11:56)
[2024-10-08] MEDS ORDERED: ALBU8.5H (11:56)
[2024-10-08] MEDS ORDERED: ASPI-527 (11:56)
[2024-10-08 11:57] VITALS: BP 114/64; TEMP 98
[2024-10-08 12:06] LABS: CALCIUM LEVEL 8.7 MG/DL (8.3-10.6); CARBON DIOXIDE LEVEL 22 MMOL/L (20-31); CHLORIDE LEVEL 105 MMOL/L (98-107); CK-MB VALUE MASS 1.0 NG/ML (<3.6); CREATININE FOR GFR 0.62 MG/DL (0.55-1.30); GLOMERULAR FILTRATION RATE > 90.0 (>45); POTASSIUM SERUM 4.0 MMOL/L (3.5-5.1); SODIUM LEVEL 141 MMOL/L (136-145)
[2024-10-08 12:07] LABS: CPK CREATINE PHOSPHOKINASE 107 U/L (34-145); MB/CK RELATIVE INDEX 0.93 (< OR =4)
[2024-10-08] MEDS ORDERED: SPIR-10 (12:09)
[2024-10-08] MEDS ORDERED: METO25TA4 (12:09)
[2024-10-08] MEDS ORDERED: METH-1164 (12:09)
[2024-10-08 12:17] VITALS: BP 156/103; TEMP 98.7; O2SAT 96
[2024-10-08 13:18] VITALS: BP 106/68; TEMP 98; O2SAT 96
[2024-10-08 14:21] VITALS: BP 115/63; TEMP 98.1; O2SAT 96
== END 2024-10-08 14:25 | disposition short-term general hospital (02) ==
LOC: EDBD 10:49 → M ED 10:49
DX: G45.9 Transient cerebral ischemic attack, unspecified (principal); E78.5 Hyperlipidemia, unspecified; K21.9 Gastro-esophageal reflux disease without esophagitis; E03.9 Hypothyroidism, unspecified; F32.A Depression, unspecified; Z87.891 Personal history of nicotine dependence; Z79.1 Long term (current) use of non-steroidal anti-inflammatories (NSAID); Z79.51 Long term (current) use of inhaled steroids; Z79.899 Other long term (current) drug therapy; Z79.810 Long term (current) use of selective estrogen receptor modulators (SERMs)
CPT/HCPCS: 36415; 70450; 70496; 70498; 71045; 80047; 80048; 82550; 82553; 84484; 85025; 85610; 85730; 93005; 93041; 94760; 99285; Q9967

== ENCOUNTER → 2024-10-17 | Outpatient (CLI) | payer MEDICARE, OTHER ==
[~2024-10-17] MED LIST changes: +ACET1TAB55; +ALBU8.5H; +ASPI-527; +ATOR80TA59; +FERR325T19; +METH-1164; +METO25TA4; +SPIR-10
== END ==
LOC: M WUC 11:29
PROVIDERS: ATTEND Nurse Practitioner Adult Health
DX: R05.1 Acute cough (principal)

== ENCOUNTER → 2024-11-20 | Outpatient (CLI) | payer MEDICARE, OTHER | LOC: M CARPUL 09:57 | PROVIDERS: ATTEND Internal Medicine Cardiovascular Disease | DX: R06.02 Shortness of breath (principal); F17.208 Nicotine dependence, unspecified, with other nicotine-induced disorders ==

== ENCOUNTER → 2024-11-26 | Outpatient (CLI) | payer MEDICARE, OTHER ==
[2024-11-26 13:05] LABS: BASO # 0.0 10^3/uL (0.0-0.2); BASO % 0.7 % (0.0-1.0); EOS # 0.2 10^3/uL (0.0-0.5); EOS % 3.6 % (0.0-3.0); LYMPH # 0.9 10^3/uL (1.5-5.0); LYMPH % 21.0 % (24.0-44.0); MONO # 0.7 10^3/uL (0.0-0.8); MONO % 15.9 % (2.0-8.0); NEUTROPHILS # 2.4 10^3/uL (1.5-8.5); NEUTROPHILS % 58.3 % (36.0-66.0); PLATELET COUNT, AUTOMATED 243 10^3/uL (150-450)
[2024-11-26 13:38] LABS: ALT/SGPT 17 U/L (7.0-40); AST/SGOT 19 U/L (<34); CALCIUM LEVEL 9.6 MG/DL (8.3-10.6); CARBON DIOXIDE LEVEL 25 MMOL/L (20-31); CHLORIDE LEVEL 109 MMOL/L (98-107); CHOLESTEROL LEVEL 119 MG/DL (<200); CHOLESTEROL RISK RATIO 3.33 (<5); CREATININE FOR GFR 0.60 MG/DL (0.55-1.30); GLOMERULAR FILTRATION RATE > 90.0 (>45); LDL CHOLESTEROL 56.1 MG/DL (<100); NON-HDL-C 83.3 MG/DL; POTASSIUM SERUM 4.3 MMOL/L (3.5-5.1); SODIUM LEVEL 141 MMOL/L (136-145); TOTAL 25(OH) VITAMIN D 57.3 NG/ML (20.0-100.0); TRIGLYCERIDES LEVEL 136 MG/DL (<150)
[2024-11-26 13:40] LABS: FREE T4 1.74 NG/DL (0.89-1.76)
== END ==
LOC: M WUC 08:46
PROVIDERS: ATTEND Nurse Practitioner Adult Health
DX: E89.0 Postprocedural hypothyroidism (principal); E78.2 Mixed hyperlipidemia; R03.0 Elevated blood-pressure reading, without diagnosis of hypertension

== ENCOUNTER → 2025-02-12 | Outpatient (REF) | payer MEDICARE, OTHER | LOC: M SFHCWAGY 13:08 | PROVIDERS: ATTEND Advanced Practice Midwife | DX: L53.9 Erythematous condition, unspecified (principal); N89.8 Other specified noninflammatory disorders of vagina ==

== ENCOUNTER → 2025-02-27 | Outpatient (CLI) | payer MEDICARE, OTHER ==
[2025-02-27 12:53] LABS: FREE T4 1.39 NG/DL (0.89-1.76)
== END ==
LOC: M WUC 09:13
PROVIDERS: ATTEND Nurse Practitioner Adult Health
DX: E89.0 Postprocedural hypothyroidism (principal)